=== PATIENT | male | born 1985 | race American Indian/Alaskan Native ===

== ENCOUNTER 2021-06-10 19:56 | Emergency (ER) | payer SELFPAY ==
[2021-06-10 20:36] VITALS: BP 159/109
--- NOTE | 2021-06-10 23:36 | Emergency Department Report ---
ED ENT HPI - General Chief complaint: Dental/Oral Stated complaint: WISDOM TOOTH PAIN Time Seen by Provider: 06/10/21 22:50 Source: patient Mode of arrival: Ambulatory Limitations: No Limitations - History of Present Illness Initial comments: This is a 35-year-old male nontoxic, well nourished in appearance, no acute signs of distress presents to the ED with c/o of right lower toothache several days. Patient denies following up with a dentist. Patient describes toothache as aching level of 8 out of 10. Patient denies any facial swelling. Patient denies any numbness, tingling, fever, chills, headache, stiff neck, abdominal pain, chest pain, shortness of breath. Patient denies any drug allergies or significant past medical history. MD complaint: tooth pain -: days(s) Location: tooth # 1 - pain here Severity: mild Quality: aching Consistency: constant Improves with: none Worsens with: none Context- Dental: history of dental caries, poor dental care Associated Symptoms: gum swelling, toothache. denies: fever, cough, pain with swallowing, sore throat, tinnitus, hearing loss, discharge from ear, rhinorrhea - Related Data Previous Rx's Medication Instructions Recorded Last Taken Type Chlorhexidine Mouthwash [Peridex] 15 ml MM BID #1 bottle 06/10/21 Unknown Rx Clindamycin [Clindamycin CAP] 300 mg PO Q8H #21 cap 06/10/21 Unknown Rx Naproxen 500 mg PO Q12H PRN #12 tablet 06/10/21 Unknown Rx Allergies Allergy/AdvReac Type Severity Reaction Status Date / Time No Known Allergies Allergy Unverified 06/10/21 20:32 ED Dental HPI - General Chief complaint: Dental/Oral Stated complaint: WISDOM TOOTH PAIN Time Seen by Provider: 06/10/21 22:50 Source: patient Mode of arrival: Ambulatory Limitations: No Limitations - Related Data Previous Rx's Medication Instructions Recorded Last Taken Type Chlorhexidine Mouthwash [Peridex] 15 ml MM BID #1 bottle 06/10/21 Unknown Rx Clindamycin [Clindamycin CAP] 300 mg PO Q8H #21 cap 06/10/21 Unknown Rx Naproxen 500 mg PO Q12H PRN #12 tablet 06/10/21 Unknown Rx Allergies Allergy/AdvReac Type Severity Reaction Status Date / Time No Known Allergies Allergy Unverified 06/10/21 20:32 ED Review of Systems ROS: Stated complaint: WISDOM TOOTH PAIN Other details as noted in HPI Comment: All other systems reviewed and negative Constitutional: denies: chills, fever Eyes: denies: eye pain, eye discharge, vision change ENT: dental pain. denies: ear pain, throat pain, hearing loss, epistaxis, congestion Respiratory: denies: cough, shortness of breath, wheezing Cardiovascular: denies: chest pain, palpitations Endocrine: no symptoms reported Gastrointestinal: denies: abdominal pain, nausea, diarrhea Genitourinary: denies: urgency, dysuria Musculoskeletal: denies: back pain, joint swelling, arthralgia Skin: denies: rash, lesions Neurological: denies: headache, weakness, paresthesias Psychiatric: denies: anxiety, depression Hematological/Lymphatic: denies: easy bleeding, easy bruising ED Past Medical Hx - Past Medical History Previous Medical History?: Yes Hx Hypertension: Yes - Surgical History Past Surgical History?: No - Medications Home Medications: Home Medications Medication Instructions Recorded Confirmed Last Taken Type Chlorhexidine Mouthwash [Peridex] 15 ml MM BID #1 bottle 06/10/21 Unknown Rx Clindamycin [Clindamycin CAP] 300 mg PO Q8H #21 cap 06/10/21 Unknown Rx Naproxen 500 mg PO Q12H PRN #12 tablet 06/10/21 Unknown Rx ED Physical Exam - General Limitations: No Limitations General appearance: alert, in no apparent distress - Head Head exam: Present: atraumatic, normocephalic - Eye Eye exam: Present: normal appearance - Expanded ENT Exam Expanded Ear exam: Present: normal external inspection Mouth exam: Present: normal external inspection, tongue normal. Absent: drooling, trismus, muffled voice Teeth exam: Present: dental caries, fractured tooth #, dental tenderness #, gingival enlargement, other (no facial swelling. no dental abscess) 1 - Dental Tenderness Throat exam: Positive: normal inspection, other (uvula midline). Negative: tonsillar erythema, tonsillomegaly, tonsillar exudate, R peritonsillar mass, L peritonsillar mass - Neck Neck exam: Present: normal inspection, full ROM. Absent: tenderness, meningismus, lymphadenopathy - Respiratory Respiratory exam: Absent: respiratory distress - Cardiovascular Cardiovascular Exam: Present: regular rate - Extremities Exam Extremities exam: Present: full ROM - Back Exam Back exam: Present: full ROM - Neurological Exam Neurological exam: Present: alert, oriented X3, normal gait - Psychiatric Psychiatric exam: Present: normal affect, normal mood - Skin Skin exam: Present: warm, dry, intact, normal color. Absent: rash ED Course Vital Signs 06/10/21 20:34 Temperature 98.7 F Pulse Rate 98 H Respiratory 20 Rate Blood Pressure 159/109 [Right] O2 Sat by Pulse 98 Oximetry - Reevaluation(s) Reevaluation #1: 06/10/21 23:34 Patient is speaking in full sentences with no signs of distress noted. ED Medical Decision Making - Medical Decision Making This is a 35-year-old male that presents with gingivitis and dental caries. Patient is stable and was examined by me. Exam does not show any dental swelling or abscess. Patient is discharged with clindamycin, Peridex and naproxen. Patient was instructed to follow-up with a dentist doctor in 3-5 days or if symptoms worsen and continue return to emergency room as soon as possible. At time of discharge, the patient does not seem toxic or ill in appearance. No acute signs of distress noted. Patient agrees to discharge treatment plan of care. No further questions noted by the patient. Critical care attestation.: If time is entered above; I have spent that time in minutes in the direct care of this critically ill patient, excluding procedure time. ED Disposition Clinical Impression: Dentin caries, Gingivitis Disposition: TO HOME OR SELFCARE Is pt being admited?: No Does the pt Need Aspirin: No Condition: Stable Additional Instructions: Follow-up with a dentist doctor in 3-5 days or if symptoms worsen and continue return to emergency room as soon as possible. Prescriptions: Clindamycin [Clindamycin CAP] 300 mg PO Q8H #21 cap Naproxen 500 mg PO Q12H PRN #12 tablet PRN Reason: Pain , Severe (7-10) Chlorhexidine Mouthwash [Peridex] 15 ml MM BID #1 bottle Referrals: PRIMARY CAREMD [Referring] - 3-5 Days LISA GA MD [Staff Physician] - 3-[address] [facility] [Outside] - 3-5 Days [facility] [Outside] - 3-5 Days Forms: Work/School Release Form(ED) Time of Disposition: 23:37
[2021-06-11] MEDS ORDERED: ACETAMINOPHEN 500 MG TAB PO ONE (00:34)
== END 2021-06-10 23:46 | disposition home or self-care (01) ==
LOC: ED 19:56
DX: K02.62 Dental caries on smooth surface penetrating into dentin (principal); K05.10 Chronic gingivitis, plaque induced; I10 Essential (primary) hypertension; Z79.899 Other long term (current) drug therapy
CPT/HCPCS: 99282